=== PATIENT | female | born 2000 | race African-American/Black ===

== ENCOUNTER 2021-01-03 08:00 | Outpatient (CLI) | payer OTHER ==
[2021-01-03 13:21] LABS: BILIRUBIN,URINE NEGATIVE (NEGATIVE); CLARITY,URINE CLOUDY (CLEAR); GLUCOSE, URINE (UA) NEGATIVE (NEGATIVE); KETONES,URINE (UA) NEGATIVE (NEGATIVE); LEUKOCYTE ESTERASE, URINE NEGATIVE (NEGATIVE); NITRITE,URINE NEGATIVE (NEGATIVE); OCCULT BLOOD,URINE NEGATIVE (NEGATIVE); PH,URINE 6.5 PH (5.0-7.5); PROTEIN,URINE NEGATIVE (NEGATIVE); UROBILINOGEN,URINE 0.2 (NORMAL) E.U./dL (NORMAL)
[2021-01-03 13:25] LABS: AMORPHOUS SEDIMENT,UR Marked /LPF; BACTERIA,URINE Few /HPF (None Seen); RBC,URINE None Seen /HPF (0-5); SQUAMOUS EPITHELIAL CELL,UR NONE SEEN (<= Few); WBC,URINE 0-3 /HPF (0-5)
== END 2021-01-03 23:59 | disposition home or self-care (01) ==
LOC: LAB.R 08:00
PROVIDERS: ATTEND Advanced Practice Midwife
DX: Z32.01 Encounter for pregnancy test, result positive (principal)
CPT/HCPCS: 81001; 87086

== ENCOUNTER 2021-01-09 16:11 | Outpatient (CLI) | payer OTHER ==
--- NOTE | 2021-01-09 18:22 | Ultrasound Report ---
PROCEDURE: OB First Trimester w/TV INDICATIONS: POSITIVE TEST OUTSIDE/PRIOR DATING DATA: Last menstrual period (LMP): 11/19/2020. LMP-based estimated date of delivery (NATALEE): 08/26/2021. First dating scan (date and location): 01/09/2021. Estimated date of delivery (NATALEE) from first dating scan: 08/26/2021. TECHNIQUE: Real-time scanning was performed of the fetus and maternal pelvic organs, with image documentation. Endovaginal scanning was also performed to better visualize the fetus and maternal ovaries. COMPARISON: None. FINDINGS: Embryo: Byram-rump length measuring 1.1 cm corresponding to gestational age of 7 weeks 2 days. heart rate 144 BPM. A yolk sac is seen. Lacy appearance within the gestational sac. Small subchorion ic bleed measuring 2.3 x 1.5 cm. Measurement variability in dating: +/- 4 weeks by LMP, +/- 7 days by mean sac diameter (use before 6 weeks gestation if crown-rump length not able to be measured), +/- 5 days by crown-rump length (6-12 weeks gestation). Maternal organs: Ovaries are within normal limits. Right ovary mass or corpus luteum measuring 2.3 x 2.2 x 1.8 cm. Left ovarian anechoic cyst measuring of 4 cm. The cervix is closed. No maternal hydron ephrosis. IMPRESSION: 1. Gutierrez living intrauterine at 7 weeks 2 days based on today's crown-rump length. Feta l heart rate 144 BPM. 2. Septations or debris within the gestational sac. 3. Small perigestational hemorrhage. 4. Right ovarian mass or corpus luteum measuring at 2.3 cm. Recommend short-term interval follow-up ultrasound. Reviewed by: Morteza Tomlinson MD on 01/09/2021 5:21 PM ANYA Approved by: Morteza Tomlinson MD on 01/09/2021 5:21 PM ANYA Station ID: [id number]
== END 2021-01-09 16:12 | disposition home or self-care (01) ==
LOC: DI 16:11
PROVIDERS: ATTEND Advanced Practice Midwife
DX: O34.81 Maternal care for other abnormalities of pelvic organs, first trimester (principal); O20.8 Other hemorrhage in early pregnancy; O99.891 Other specified diseases and conditions complicating pregnancy; N83.8 Other noninflammatory disorders of ovary, fallopian tube and broad ligament; R93.89 Abnormal findings on diagnostic imaging of other specified body structures; Z3A.01 Less than 8 weeks gestation of pregnancy

== ENCOUNTER 2021-01-13 16:50 | Emergency (ER) | payer OTHER ==
[2021-01-13] MEDS ORDERED: PROPARACAINE 0.5% OPHTH DROPS 15 ML EACHEYE STA (18:34)
[2021-01-13] MEDS ORDERED: POLYMYXIN B/TRIMETH OPHTH DROPS RIGHTEYE STA (19:00)
--- NOTE | 2021-01-13 19:03 | ED Physician Documentation ---
PD HPI OPHTHO - Stated complaint Stated Complaint: RT EYE PX/SENSITIVITY - Chief complaint Chief Complaint: Heent - History obtained from History obtained from: Patient - History of Present Illness Timing - onset: How many days ago (1) Timing - duration: Days (1) Timing - details: Gradual onset Pain level max: 3 Pain level now: 2 Location: Right Quality / character: Aching Associated symptoms: Redness, Tearing Contributing factors: Wears contacts - Additional information Additional information: Patient is a 20-year-old female who complains of right eye pain. She does wear contacts and did sleep in them last night. Tonight her eye is red and tearing. Clear drainage. Aching type pain. Worse with light. Nothing makes it better Review of Systems Constitutional: denies: Fever Eyes: denies: Loss of vision Ears: denies: Ear pain Nose: denies: Rhinorrhea / runny nose, Congestion : denies: Now EGA Skin: denies: Rash PD PAST MEDICAL HISTORY - Past Medical History Past Medical History: No - Past Surgical History Past Surgical History: No - Present Medications Home Medications: Ambulatory Orders Medication Instructions Recorded Confirmed Ofloxacin 0.3% Ophth Drops 1 - 2 drops RIGHTEYE Q4H 7 Days #5 01/13/21 [Ocuflox 0.3% Ophth Drops] ml - Allergies Allergies/Adverse Reactions: Allergies Allergy/AdvReac Type Severity Reaction Status Date / Time No Known Drug Allergies Allergy Verified 01/13/21 17:46 - Social History Does the pt smoke?: No Smoking Status: Never smoker Does the pt drink ETOH?: No Does the pt have substance abuse?: No - Immunizations Immunizations are current?: Yes - POLST Patient has POLST: No PD ED PE NORMAL - Vitals Vital signs reviewed: Yes - General General: Alert and oriented X 3, No acute distress - HEENT HEENT: Moist mucous membranes, Other (L eye normal. - R eye conjunctival injection, slight yellow drainage. no fluoroscein uptake. no visible ulceration. ) - Neck Neck: Supple, no meningeal sign - Cardiac Cardiac: RRR - Respiratory Respiratory: No respiratory distress, Clear bilaterally - Derm Derm: Warm and dry - Neuro Neuro: Alert and oriented X 3 - Psych Psych: Normal mood, Normal affect Results - Vitals Vitals: Vital Signs - 24 hr 01/13/21 01/13/21 17:42 19:21 Temperature 36.7 C 37.0 C Heart Rate 71 73 Respiratory 15 20 Rate Blood Pressure 136/64 H 112/74 O2 Saturation 100 97 Oxygen O2 Source Room air PD MEDICAL DECISION MAKING - ED course Complexity details: considered differential, d/w patient ED course: 20-year-old female with right eye conjunctivitis. Does wear contacts and does sleep in her contacts. I do not see a corneal ulcer. We will cover her with Ocuflox. We will have her follow-up with her doctor and ophthalmology for further care. Patient counseled regarding signs and symptoms for which I believe and urgent re-evaluation would be necessary. Patient with good understanding of and agreement to plan and is comfortable going home at this time This document was made in part using voice recognition software. While efforts are made to proofread this document, sound alike and grammatical errors may occur. Departure - Departure Disposition: 01 Home, Self Care Clinical Impression: Conjunctivitis Qualifiers: Conjunctivitis type: acute Acute conjunctivitis type: bacterial Laterality: right Qualified Code(s): H10.31 - Unspecified acute conjunctivitis, right eye Condition: Good Instructions: ED Conjunctivitis Bacterial Follow-Up: your,doctor in 1 week [Other] Jairon Blanco MD [Provider Admit Priv/Credential] - Within 1 week Prescriptions: Ofloxacin 0.3% Ophth Drops [Ocuflox 0.3% Ophth Drops] 1 - 2 drops RIGHTEYE Q4H 7 Days #5 ml Comments: Use the antibiotic drops as prescribed. Follow-up with your doctor for repeat evaluation. Please do not wear your contact lenses until you are fully healed. You should see an contract associate manager as well to ensure there is no further damage. Discharge Date/Time: 01/13/21 19:28
[2021-01-13 19:21] VITALS: BP 112/74
== END 2021-01-13 19:28 | disposition home or self-care (01) ==
LOC: ED 16:50
DX: H10.31 Unspecified acute conjunctivitis, right eye (principal)
CPT/HCPCS: 99282; 99284; A9270; J3490

== ENCOUNTER 2021-01-31 14:57 | Outpatient (CLI) | payer OTHER ==
--- NOTE | 2021-01-31 16:42 | Ultrasound Report ---
PROCEDURE: OB First Trimester INDICATIONS: Supervision of OUTSIDE/PRIOR DATING DATA: Last menstrual period (LMP): 11/19/2020. LMP-based estimated date of delivery (NATALEE): 08/26/2021. First dating scan (date and location): 01/09/2021. Estimated date of delivery (NATALEE) from first dating scan: 08/26/2021. TECHNIQUE: Real-time scanning was performed of the fetus and maternal pelvic organs, with image documentation. COMPARISON: 01/09/2021 FINDINGS: Embryo: Gestational sac in the uterine fundus measures 4.7 cm mean sac diameter, consistent with 10 weeks 2 day gestational age. Previously seen debris in the gestational sac has almost entirely resolv ed. Embryo measuring 3.7 cm crown-rump length, consistent with gestational age of 10 weeks 5 days. Ce rvix is closed measuring 3.5 cm. heart rate 1 60 bpm. Measurement variability in dating: +/- 4 weeks by LMP, +/- 7 days by mean sac diameter (use before 6 weeks gestation if crown-rump length not able to be measured), +/- 5 days by crown-rump length (6-12 weeks gestation). Maternal organs: Unchanged right ovarian mass with mixed echogenicity. This is thought to represent a corpus luteum cyst although a dermoid cannot be strictly excluded. Left ovary is unremarkable. IMPRESSION: Single living intrauterine gestation with average ultrasound age of 10 weeks 5 days. Previously seen debris in the gestational sac has almost entirely resolved. Amniotic bands or hemorrh age within the gestational sac remain the leading differential considerations. Unchanged right ovarian lesion likely a corpus luteum cyst, although dermoid cannot be strictly exclu ded. Reviewed by: Rayshawn Cullen MD on 01/31/2021 4:41 PM PDT Approved by: Rayshawn Cullen MD on 01/31/2021 4:41 PM PDT Station ID: [id number]
== END 2021-01-31 14:58 | disposition home or self-care (01) ==
LOC: DI 14:57
PROVIDERS: ATTEND Advanced Practice Midwife
DX: Z34.91 Encounter for supervision of normal pregnancy, unspecified, first trimester (principal)

== ENCOUNTER 2021-02-04 11:18 | Outpatient (CLI) | payer OTHER ==
[2021-02-04 12:36] LABS: BASOPHILS % (AUTO) 0.5 %; EOSINOPHILS # (AUTO) 0.3 10^3/uL (0.0-0.7); EOSINOPHILS % (AUTO) 4.3 %; HCT - HEMATOCRIT 41.1 % (37.0-47.0); HGB - HEMOGLOBIN 13.5 g/dL (12.0-16.0); LYMPHOCYTES % (AUTO) 27.1 %; MEAN CORPUSCULAR HEMOGLOBIN 27.6 pg (27.0-31.0); MEAN CORPUSCULAR HGB CONC 32.8 g/dL (32.0-36.0); MEAN PLATELET VOLUME 9.1 fL (7.9-10.8); MONOCYTES # (AUTO) 0.5 10^3/uL (0.0-1.0); MONOCYTES % (AUTO) 6.5 %; NEUTROPHILS # (AUTO) 4.5 10^3/uL (1.5-6.6); NEUTROPHILS % (AUTO) 61.5 %; PLT - PLATELET COUNT 276 10^3/uL (130-450); RED BLOOD COUNT 4.89 10^6/uL (4.20-5.40); RED CELL DISTRIBUTION WIDTH 12.7 % (12.0-15.0); WHITE BLOOD COUNT 7.4 x10^3/uL (4.8-10.8)
[2021-02-05 13:16] LABS: HEPATITIS B SURFACE ANTIGEN NON-REACTIVE (NON-REACTIVE); HEPATITIS C ANTIBODY NON-REACTIVE (NON-REACTIVE)
[2021-02-05 16:56] LABS: HIV AG/AB 4TH GEN NON-REACTIVE (NON-REACTIVE)
== END 2021-02-04 11:19 | disposition home or self-care (01) ==
LOC: LAB 11:18
PROVIDERS: ATTEND Advanced Practice Midwife
DX: Z34.90 Encounter for supervision of normal pregnancy, unspecified, unspecified trimester (principal); Z36.0 Encounter for antenatal screening for chromosomal anomalies; Z36.89 Encounter for other specified antenatal screening
CPT/HCPCS: 36415; 80306; 85025; 86592; 86762; 86787; 86803; 86850; 86900; 86901; 87340; 87389; 87491; 87591; 87661

== ENCOUNTER 2021-03-05 10:56 | Outpatient (CLI) | payer OTHER | END 2021-03-05 10:57 | disposition home or self-care (01) | LOC: LAB 10:56 | PROVIDERS: ATTEND Nurse Practitioner Obstetrics & Gynecology | DX: Z36.0 Encounter for antenatal screening for chromosomal anomalies (principal) | CPT/HCPCS: 36415; 81599; 82105 ==

== ENCOUNTER 2021-04-12 15:12 | Outpatient (CLI) | payer OTHER ==
--- NOTE | 2021-04-12 19:57 | Ultrasound Report ---
PROCEDURE: OB Detailed Eval INDICATIONS: SUPERVISION OF OUTSIDE/PRIOR DATING DATA: Last menstrual period (LMP): 11/19/2020. LMP-based estimated date of delivery (NATALEE): 08/26/2021. First dating scan (date and location): 01/09/2021. Estimated date of delivery (NATALEE) from first dating scan: 08/26/2021. The below data below was generated using the ultrasound NATALEE of 08/26/2021 TECHNIQUE: Real-time scanning was performed of the fetus, with image documentation and biometric measurements. Endovaginal scanning: Not performed COMPARISON: OB ultrasound, 01/31/2021. FINDINGS: General: A single living intrauterine gestation is present. Presentation: . Pole Placenta: Placental position is posterior, without previa. Amniotic fluid index: 16.6 cm; largest pocket 4.7 cm. heart rate: 153 beats per minute. Maternal cervical canal: 3.2 cm long and closed; normal length is 2.5 cm or more. biometrics: Biparietal diameter: 4.81 cm = 20 weeks 4 days Head circumference: 17.92 cm = 20 weeks 3 days Abdominal circumference: 15.14 cm = 20 weeks 3 days Femur length: 3.36 cm = 20 weeks 4 days Estimated gestational age from initial scan: 20 weeks 4 days. Composite gestational age from present scan: 20 weeks 3 days Estimated weight and percentile: 353 g; 37.7% Measurement variability in biometric dating: +/- 10 days from 12-20 weeks gestation, +/- 2 weeks from 20-30 weeks gestation, +/- 3 weeks at 30 weeks gestation or later. Anatomic survey: Neuro: Ventricles are normal at less than 10 mm. Cisterna magna is normal at 3-11 mm. Cerebellum i s normal in size and morphology. Nuchal skin fold: Normal at less than 6 mm between 14 and 20 weeks gestational age. Face: Nose and lips, facial profile are normal. Spine: No evidence for spina bifida. Heart: Normal four-chamber heart. Ventricular outflow tracts not well seen. Diaphragm: Diaphragm is intact. Stomach: Left-sided stomach is present. Kidneys: No hydronephrosis. Normal is less than 5 mm in 2nd trimester, less than 7 mm in 3rd trimester. Cord: 3 vessel cord has orthotopic insertion. Bladder: Normal in size. Extremities: All 4 extremities are visualized. Again noted is probably a corpus luteal cyst in the right ovary measuring 1.7 x 1.6 cm. IMPRESSION: 1. A single living intrauterine gestation redemonstrated. 2. The ventricular outflow tracts are suboptimally visualized due to position. Repeat examinati on suggested if clinically indicated. 3. Otherwise normal anatomic survey. 4. Probably corpus luteal cyst in the right ovary. Reviewed by: Lissy Pa MD on 04/12/2021 7:56 PM PDT Approved by: Lissy Pa MD on 04/12/2021 7:56 PM PDT Station ID: [id number]
== END 2021-04-12 15:13 | disposition home or self-care (01) ==
LOC: DI 15:12
PROVIDERS: ATTEND Nurse Practitioner Obstetrics & Gynecology
DX: O99.891 Other specified diseases and conditions complicating pregnancy (principal); R93.89 Abnormal findings on diagnostic imaging of other specified body structures; Z3A.20 20 weeks gestation of pregnancy

== ENCOUNTER 2021-04-25 18:23 | Outpatient (CLI) | payer OTHER ==
--- NOTE | 2021-04-26 10:07 | Ultrasound Report ---
PROCEDURE: OB F/U or Repeat INDICATIONS: SUPERVISION OF OUTSIDE/PRIOR DATING DATA: Last menstrual period (LMP): 11/19/2020. LMP-based estimated date of delivery (NATALEE): 08/26/2021. First dating scan (date and location): 01/09/2021. Estimated date of delivery (NATALEE) from first dating scan: 08/26/2021. The below data below was generated using the ultrasound NATALEE of 08/26/2021 TECHNIQUE: Real-time scanning was performed of the fetus, with image documentation. Endovaginal scanning: Not performed. COMPARISON: OB ultrasound 04/12/2021, 01/31/2021, 01/09/2021 FINDINGS: General: A single living intrauterine gestation is present. Presentation: Breech Placenta: Placental position is posterior, without previa. Amniotic fluid index: 14.2 cm, normal for gestational age. Largest pocket 4.5 cm. heart rate: 140 beats per minute. Maternal cervical canal: Not measured, but appears closed. Other: Left ventricular outflow tract appears normal. Right ventricular outflow tract is suboptimally visualized. Limited evaluation of additional anatomic structures is within normal limits. IMPRESSION: 1. Single live intrauterine . 2. Normal left ventricular outflow tract. 3. Right ventricular outflow tract is not well visualized. Reviewed by: Román Sotomayor MD on 04/26/2021 10:06 AM PDT Approved by: Román Sotomayor MD on 04/26/2021 10:06 AM PDT Station ID: [id number]
== END 2021-04-25 18:24 | disposition home or self-care (01) ==
LOC: DI 18:23
PROVIDERS: ATTEND Nurse Practitioner Obstetrics & Gynecology
DX: Z34.90 Encounter for supervision of normal pregnancy, unspecified, unspecified trimester (principal); Z36.0 Encounter for antenatal screening for chromosomal anomalies

== ENCOUNTER 2021-05-09 15:31 | Outpatient (CLI) | payer OTHER ==
--- NOTE | 2021-05-10 16:37 | Ultrasound Report ---
PROCEDURE: OB F/U or Repeat INDICATIONS: SUPERVISION OF . Previous anatomy scan, and subsequent ventricular outflow tra ct scans demonstrate normal anatomy other than suboptimal visualization of the RVOT. Patient returns for evaluation of the RVOT. OUTSIDE/PRIOR DATING DATA: Last menstrual period (LMP): 11/19/2020. LMP-based estimated date of delivery (NATALEE): 08/26/2021. First dating scan (date and location): 01/09/2021, physician's office. Estimated date of delivery (NATALEE) from first dating scan: 08/26/2021. The below data below was generated using the ultrasound and clinical NATALEE of 10/26/2020 TECHNIQUE: Real-time scanning was performed of the fetus, with image documentation and biometric measurements. Endovaginal scanning: Not required COMPARISON: 04/12/2021, 04/25/2021 FINDINGS: General: A single living intrauterine gestation is present. Presentation: Breech Placenta: Placental position is posterior, without previa. Amniotic fluid index: 14.5 cm, within normal limits for gestational age. heart rate: 164 beats per minute. Maternal cervical canal: 4.9 cm long; normal length is 2.5 cm or more. The RVOT is well visualized, and is normal in appearance. LVOT is also normal in appearance. IMPRESSION: 1. Living second trimester intrauterine . 2. Normal RVOT, completing a normal anatomy study. Reviewed by: Spencer Reyes MD on 05/10/2021 4:35 PM PDT Approved by: Spencer Reyes MD on 05/10/2021 4:35 PM PDT Station ID: [id number]
== END 2021-05-09 15:32 | disposition home or self-care (01) ==
LOC: DI 15:31
PROVIDERS: ATTEND Advanced Practice Midwife
DX: Z34.90 Encounter for supervision of normal pregnancy, unspecified, unspecified trimester (principal)

== ENCOUNTER 2021-05-22 08:42 | Outpatient (CLI) | payer OTHER ==
[2021-05-22 10:08] LABS: HCT - HEMATOCRIT 39.2 % (37.0-47.0); HGB - HEMOGLOBIN 12.6 g/dL (12.0-16.0); MEAN CORPUSCULAR HEMOGLOBIN 27.7 pg (27.0-31.0); MEAN CORPUSCULAR HGB CONC 32.1 g/dL (32.0-36.0); MEAN CORPUSCULAR VOLUME 86.2 fL (81.0-99.0); MEAN PLATELET VOLUME 9.5 fL (7.9-10.8); RED BLOOD COUNT 4.55 10^6/uL (4.20-5.40); RED CELL DISTRIBUTION WIDTH 13.4 % (12.0-15.0); WHITE BLOOD COUNT 7.3 x10^3/uL (4.8-10.8)
== END 2021-05-22 08:43 | disposition home or self-care (01) ==
LOC: LAB 08:42
PROVIDERS: ATTEND Advanced Practice Midwife
DX: Z34.90 Encounter for supervision of normal pregnancy, unspecified, unspecified trimester (principal)
CPT/HCPCS: 36415; 82950; 85027

== ENCOUNTER 2021-05-27 07:34 | Outpatient (CLI) | payer OTHER ==
[2021-05-27 08:12] LABS: GTT GLUCOSE,FASTING 92 mg/dL (70-100)
== END 2021-05-27 07:35 | disposition home or self-care (01) ==
LOC: LAB 07:34
PROVIDERS: ATTEND Nurse Practitioner Obstetrics & Gynecology
DX: O99.810 Abnormal glucose complicating pregnancy (principal)
CPT/HCPCS: 36415; 82951; 82952

== ENCOUNTER 2021-08-01 08:00 | Outpatient (CLI) | payer OTHER | END 2021-08-01 23:59 | disposition home or self-care (01) | LOC: LAB.WC 08:00 | PROVIDERS: ATTEND Obstetrics & Gynecology | DX: Z34.90 Encounter for supervision of normal pregnancy, unspecified, unspecified trimester (principal) | CPT/HCPCS: 87797 ==

== ENCOUNTER 2021-08-02 16:06 | Outpatient (CLI) | payer OTHER ==
[2021-08-02 16:29] LABS: BASOPHILS % (AUTO) 0.3 %; EOSINOPHILS # (AUTO) 0.1 10^3/uL (0.0-0.7); EOSINOPHILS % (AUTO) 0.8 %; HCT - HEMATOCRIT 39.3 % (37.0-47.0); HGB - HEMOGLOBIN 12.7 g/dL (12.0-16.0); LYMPHOCYTES # (AUTO) 1.9 10^3/uL (1.5-3.5); LYMPHOCYTES % (AUTO) 31.9 %; MEAN CORPUSCULAR HEMOGLOBIN 26.8 pg (27.0-31.0); MEAN CORPUSCULAR HGB CONC 32.3 g/dL (32.0-36.0); MEAN CORPUSCULAR VOLUME 83.1 fL (81.0-99.0); MEAN PLATELET VOLUME 9.8 fL (7.9-10.8); MONOCYTES # (AUTO) 0.5 10^3/uL (0.0-1.0); MONOCYTES % (AUTO) 7.7 %; NEUTROPHILS # (AUTO) 3.5 10^3/uL (1.5-6.6); PLT - PLATELET COUNT 267 10^3/uL (130-450); RED BLOOD COUNT 4.73 10^6/uL (4.20-5.40); RED CELL DISTRIBUTION WIDTH 14.2 % (12.0-15.0)
--- NOTE | 2021-08-02 16:40 | PROVIDER PROGRESS NOTE ---
- HPI Chief Complaint: Hypertension/PIH Current : Vital Signs Temperature 99.0 F 08/02/21 16:19 Heart Rate 84 08/02/21 16:19 Respiratory Rate 17 08/02/21 16:19 Blood Pressure 127/84 H 08/02/21 16:19 Temperature 99.0 F 08/02/21 16:21 Heart Rate 84 08/02/21 16:21 Respiratory Rate 17 08/02/21 16:21 Blood Pressure 127/84 H 08/02/21 16:21 O2 Saturation 100 08/02/21 16:21 - Exam 21yo at 36 0/7 weeks presented due to elevated blood pressure at home. Patient had elevated blood pressure in clinic yesterday. Patient reports good movement. Patient denies contractions, SROM or vaginal bleeding. Patient states she has "a little headache", but has not tired Tylenol for it because it "isnt't that bad". O- General: Patient is sitting up on stretcher and in no apparent distress. Chest: Clear to auscultation. Clear breath sounds in all glass. No rales, wheezes, or rhonchi. Heart: RRR without murmur or gallop. Abdomen: Soft, non-tender, Gravid Extremities: No pitting or pretibial edema. Patient wearing open slides. - Procedures OB Procedure Performed: NST Diagnosis/Indication for NST: Gestational Hypertension NST Procedure: 16:20 16:40 NST: Baseline 140 bpm, Accelerations 15X15 2 in 20 minutes. No decelerations. Moderate variability. Category I NST and Reactive. Service Date of procedure: 08/02/21 - Plan Plan: A- IUP 36 5/7, Normal blood pressure at Triage today. Normal Labs today. P- Patient to continue to monitor blood pressure at home. Pre-Eclampsia signs and symptoms reviewed. Patient to call for any questions or concerns. Discussed she may need to start medication if she consistently has Systolic of 140 or greater or Diastolic of 90 or greater. Follow-up in clinic as scheduled. Labor precautions.
[2021-08-02 16:41] LABS: ALBUMIN 3.2 g/dL (3.2-5.5); ALBUMIN/GLOBULIN RATIO 0.9 (1.0-2.2); BILIRUBIN,TOTAL 0.3 mg/dL (0.2-1.0); CALCIUM 9.4 mg/dL (8.5-10.3); CREATININE 0.8 mg/dL (0.4-1.0); POTASSIUM 3.7 mmol/L (3.5-5.0); TOTAL PROTEIN 6.7 g/dL (6.7-8.2)
[2021-08-02 16:52] LABS: CREATININE,URINE 230.5 mg/dL; PROTEIN/CREATININE RATIO,URINE 0.1 (<=0.2)
[2021-08-02 17:28] VITALS: BP 123/80
== END 2021-08-02 17:20 | disposition home or self-care (01) ==
LOC: WFO 16:06 → FBP 16:08 → WFO 17:20
PROVIDERS: ATTEND Obstetrics & Gynecology
DX: O13.3 Gestational [pregnancy-induced] hypertension without significant proteinuria, third trimester (principal); Z3A.36 36 weeks gestation of pregnancy
CPT/HCPCS: 36415; 59025; 80053; 82570; 84156; 84550; 85025

== ENCOUNTER 2021-08-07 11:30 | Outpatient (CLI) | payer OTHER ==
[2021-08-07 11:58] LABS: HCT - HEMATOCRIT 40.3 % (37.0-47.0); HGB - HEMOGLOBIN 13.1 g/dL (12.0-16.0); MEAN CORPUSCULAR HEMOGLOBIN 27.1 pg (27.0-31.0); MEAN CORPUSCULAR HGB CONC 32.5 g/dL (32.0-36.0); MEAN CORPUSCULAR VOLUME 83.3 fL (81.0-99.0); MEAN PLATELET VOLUME 9.7 fL (7.9-10.8); RED BLOOD COUNT 4.84 10^6/uL (4.20-5.40); RED CELL DISTRIBUTION WIDTH 14.5 % (12.0-15.0); WHITE BLOOD COUNT 7.1 x10^3/uL (4.8-10.8)
[2021-08-07 12:05] LABS: PROTEIN/CREATININE RATIO,URINE 0.1 (<=0.2)
[2021-08-07 12:10] LABS: ALBUMIN 3.4 g/dL (3.2-5.5); ALBUMIN/GLOBULIN RATIO 0.9 (1.0-2.2); BILIRUBIN,TOTAL 0.4 mg/dL (0.2-1.0); CALCIUM 9.6 mg/dL (8.5-10.3); CREATININE 0.8 mg/dL (0.4-1.0); POTASSIUM 4.2 mmol/L (3.5-5.0)
== END 2021-08-07 11:31 | disposition home or self-care (01) ==
LOC: LAB 11:30
PROVIDERS: ATTEND Nurse Practitioner Obstetrics & Gynecology
DX: O13.3 Gestational [pregnancy-induced] hypertension without significant proteinuria, third trimester (principal)
CPT/HCPCS: 36415; 80053; 82570; 84156; 85027

== ENCOUNTER 2021-08-12 07:26 | Inpatient (IN) | payer OTHER ==
[2021-08-12] MEDS ORDERED: TRANEXAMIC ACID IN NACL 1,000 MG/100 ML BAG IV PRN (07:51)
[2021-08-12] MEDS ORDERED: SODIUM CHLORIDE FLUSH 0.9% 10 ML SYRINGE IVP PRN (07:51)
[2021-08-12] MEDS ORDERED: OXYTOCIN 10 UNIT/ML VIAL IM PRN (07:51)
[2021-08-12] MEDS ORDERED: miSOPROStoL 200 MCG TABLET BC PRN (07:51)
[2021-08-12] MEDS ORDERED: CARBOPROST TROMETHAMINE 250 MCG/ML AMP IM PRN (07:51)
[2021-08-12] MEDS ORDERED: OXYTOCIN/SODIUM CHLORIDE 500 ML IV PRN (07:51)
[2021-08-12] MEDS ORDERED: LIDOCAINE-MPF 1% 30 ML VIAL ID PRN (07:51)
[2021-08-12] MEDS ORDERED: METHYLERGONOVINE 0.2 MG/ML VIAL IM PRN (07:51)
[2021-08-12] MEDS ORDERED: LACTATED RINGERS 1,000 ML IV SCH (08:00)
[2021-08-12 08:13] LABS: BASOPHILS % (AUTO) 0.4 %; EOSINOPHILS % (AUTO) 0.6 %; HGB - HEMOGLOBIN 12.2 g/dL (12.0-16.0); LYMPHOCYTES % (AUTO) 36.4 %; MEAN CORPUSCULAR HEMOGLOBIN 26.8 pg (27.0-31.0); MEAN CORPUSCULAR HGB CONC 32.1 g/dL (32.0-36.0); MEAN CORPUSCULAR VOLUME 83.5 fL (81.0-99.0); MEAN PLATELET VOLUME 9.6 fL (7.9-10.8); MONOCYTES # (AUTO) 0.3 10^3/uL (0.0-1.0); NEUTROPHILS % (AUTO) 56.4 %; PLT - PLATELET COUNT 227 10^3/uL (130-450); RED BLOOD COUNT 4.55 10^6/uL (4.20-5.40); RED CELL DISTRIBUTION WIDTH 14.6 % (12.0-15.0); WHITE BLOOD COUNT 5.4 x10^3/uL (4.8-10.8)
[2021-08-12] MEDS: miSOPROStoL 100 MCG TABLET BC SCH ×4 (08:41→20:48)
[2021-08-12] MEDS ORDERED: SODIUM CHLORIDE FLUSH 0.9% 10 ML SYRINGE IVP SCH (09:00)
[2021-08-12 09:14] LABS: CREATININE,URINE 201.5 mg/dL; PROTEIN/CREATININE RATIO,URINE 0.1 (<=0.2)
[2021-08-12 09:15] LABS: ALBUMIN 2.9 g/dL (3.2-5.5); ALBUMIN/GLOBULIN RATIO 0.8 (1.0-2.2); BILIRUBIN,TOTAL 0.3 mg/dL (0.2-1.0); CALCIUM 9.1 mg/dL (8.5-10.3); CREATININE 0.9 mg/dL (0.4-1.0); POTASSIUM 3.4 mmol/L (3.5-5.0); TOTAL PROTEIN 6.4 g/dL (6.7-8.2)
[2021-08-12] MEDS ORDERED: ZOLPIDEM 5 MG TABLET PO PRN (15:25)
[2021-08-12] MEDS ORDERED: fentaNYL 100 MCG/2 ML VIAL IVP PRN (23:50)
[2021-08-13] MEDS: miSOPROStoL 100 MCG TABLET BC SCH (01:04)
[2021-08-13] MEDS ORDERED: ROPIVACAINE 0.2% 200 MG/100 ML BAG EP ONE (02:42)
[2021-08-13] MEDS ORDERED: ONDANSETRON 4 MG/2 ML VIAL IVP PRN (03:07)
[2021-08-13] MEDS ORDERED: NALOXONE 0.4 MG/ML VIAL IVP PRN (03:07)
[2021-08-13] MEDS ORDERED: ROPIVACAINE 0.2% 200 MG/100 ML BAG EP PRN (03:07)
[2021-08-13] MEDS ORDERED: ePHEDrine 50 MG/ML VIAL IVP PRN (03:07)
--- NOTE | 2021-08-13 03:07 | ANESTHESIA ---
Pre-Anesthesia VS, & Labs - Diagnosis Active labor - Procedure vaginal delivery Vital Signs: Temp Pulse Resp BP Pulse Ox 37.0 C 88 16 123/87 H 08/12/21 08:56 08/12/21 08:56 08/12/21 08:56 08/12/21 08:56 Height: 5 ft 5 in Weight (kg): 95.708 kg Body Mass Index: 35.1 BMI Classification: Obese - NPO Last Fluid Intake: clear liquids - Is Patient ?: Yes - Lab Results Current Lab Results: Laboratory Tests 08/12/21 09:34: Blood Type A POSITIVE, Antibody Screen NEGATIVE 08/12/21 08:00: Sodium 134 L, Potassium 3.4 L, Chloride 105, Carbon Dioxide 19 L , Anion Gap 10.0, BUN 15, Creatinine 0.9, Estimated GFR (MDRD) 96, Glucose 108 H , Calcium 9.1, Total Bilirubin 0.3, AST 22, ALT 14, Alkaline Phosphatase 110, Total Protein 6.4 L, Albumin 2.9 L, Globulin 3.5, Albumin/Globulin Ratio 0.8 L 08/12/21 08:00: WBC 5.4, RBC 4.55, Hgb 12.2, Hct 38.0, MCV 83.5, MCH 26.8 L, MCHC 32.1, RDW 14.6, Plt Count 227, MPV 9.6, Neut # (Auto) 3.0, Lymph # (Auto) 2.0, [place] # (Auto) 0.3, Eos # (Auto) 0.0, Baso # (Auto) 0.0, Absolute Nucleated RBC 0.00, Nucleated RBC % 0.0 Fish Bones: 08/12/21 08:00 08/12/21 08:00 Home Medications and Allergies Active Medications Carboprost Tromethamine (Carboprost Tromethamine 250 Mcg/Ml Amp) 250 mcg IM Q15M PRN PRN Reason: Step 4: Hemorrhage protocol Stop: 08/17/21 07:54 Fentanyl (Fentanyl 100 Mcg/2 Ml Vial) 50 mcg IVP Q4HR PRN PRN Reason: PAIN Last Admin: 08/13/21 00:09 Dose: 50 mcg Documented by: Lactated Ringer's (Lr) 1,000 mls @ 100 mls/hr IV .Q10H ELENI Oxytocin/Sodium Chloride (Pitocin/Sodium Chloride) 500 mls @ 999 mls/hr IV PRN PRN; Protocol PRN Reason: POST- HEMORR PREVENTION Stop: 08/17/21 07:54 Tranexamic Acid (Tranexamic 1,000 Mg/100ml-Nacl) 1,000 mg in 100 mls @ 600 mls/hr IV .ONCE PRN PRN Reason: EBL >1200mL and within 3hr Stop: 08/17/21 07:54 Lidocaine HCl (Lidocaine-Mpf 1% 30 Ml Vial) 30 ml ID .ONCE PRN PRN Reason: PERINEAL REPAIR Stop: 08/17/21 07:54 Methylergonovine Maleate (Methylergonovine 0.2 Mg/Ml Vial) 0.2 mg IM .ONCE PRN PRN Reason: Step 2: Hemorrhage protocol Stop: 08/17/21 07:54 Misoprostol (Misoprostol 100 Mcg Tablet) 50 mcg BC Q4HR ELENI Last Admin: 08/13/21 01:04 Dose: 50 mcg Documented by: Misoprostol (Misoprostol 200 Mcg Tablet) 800 mcg BC .ONCE PRN PRN Reason: Step 3: Hemorrhage protocol Stop: 08/17/21 07:54 Oxytocin (Oxytocin 10 Unit/Ml Vial) 10 unit IM .ONCE PRN PRN Reason: Step one: If no IV access Stop: 08/17/21 07:54 Sodium Chloride (Sodium Chloride Flush 0.9% 10 Ml Syringe) 10 ml IVP 0100,0900,1700 [facility] Last Admin: 08/12/21 19:15 Dose: 10 ml Documented by: Sodium Chloride (Sodium Chloride Flush 0.9% 10 Ml Syringe) 10 ml IVP PRN PRN PRN Reason: NEEDED PER PROVIDER ORDERS Last Admin: 08/13/21 00:09 Dose: 10 ml Documented by: Allergies/Adverse Reactions: Allergies Allergy/AdvReac Type Severity Reaction Status Date / Time No Known Drug Allergies Allergy Verified 01/13/21 17:46 Anes History & Medical History - Anesthetic History Family history of Anesthesia Complications: Denies Family history of Malignant Hyperthermia: Denies - Medical History Cardiovascular: reports: None Pulmonary: reports: None Gastrointestinal: reports: GERD (during ) Urinary: reports: None Neuro: reports: None Musculoskeletal: reports: None Endocrine/Autoimmune: reports: None Blood Disorders: reports: None Skin: reports: None Smoking Status: Never smoker Psychosocial: reports: No issues indicated History of Cancer?: No - Surgical History General: reports: Other (wisdom teeth) - Obstetrical History : 1 Parity: 0 Events: reports: induced HTN Complications: reports: None Exam General: Alert, Oriented x3, Cooperative, No acute distress Dental: WNL Mouth Openin Fingerbreadth Mallampati classification: II Thyromental Distance: 4-6 cm Mental/Cognitive Status: Alert/Oriented X3, Normal for patient Plan Anesthesia Type: Epidural Consent for Procedure(s) Verified and Reviewed: Yes Code Status: Attempt Resuscitation ASA classification: 2-Mild systemic disease Is this case an emergency?: No
--- NOTE | 2021-08-13 06:51 | DELIVERY NOTE ---
Delivery Note - Labor Labor: positive: Spontaneous - Delivery Method Delivery Method: positive: Spontaneous vaginal delivery - Cervical Ripening Method Cervical Ripening Method: positive: Misoprostil - Presentation Presentation: positive: Vertex, KATHRYN - right occiput anterior - Nuchal Cord Nuchal Cord: positive: None - Amniotic Fluid Description Amniotic Fluid Description: positive: Clear - Episiotomy Type Episiotomy Type: positive: None - Laceration Laceration: positive: 2nd degree, Perineal, Vaginal - Suture Suture Type: positive: Vicryl Suture Size: positive: 2-0, 3-0 - Delivery Outcome Delivery Outcome: positive: Livebirth - Delmar Delmar: positive: Placed in direct skin contact with mother, Stimulated, Warmed, [place]ometown used sex: positive: Female - Cord Cord: positive: 3 vessels - Placenta Placenta: positive: Intact, Spontaneous - Estimated Blood Loss Estimated Blood Loss (in cc): 150 - Post Delivery Events Post Delivery Events: positive: No post delivery events - Delivery Comments (Free Text/Narrative) Delivery Comments (Free Text/Narrative): Labor: This 21yo @ 38.1wks gestation by LMP c/w wk U/S who presented on 08/12/2020 for medical induction of labor secondary to gestational hypertension. SVE was deferred upon arrival secondary to absence of notable contractions. She received 5 total doses of 50mcg BC misoprostol for pre-induction cervical ripening. Epidural placed per maternal request. SROM occurred at 0330 was noted to be a moderate amount of clear fluid. SVE at that time was 2-3/90/-1. FHR pattern demonstrated Category I pattern for most of her labor course with persistent Category II following epidural placement which resulted in hypotension however patient progressed rapidly and was imminent. Pt progressed to c/c/0 at 0511. : Normal of viable female on 08/13/2021 @ 0540. No nuchal cord. The was placed on maternal abdomen, stimulated, dried, and placed skin to skin. 's were 8/9 at 1 and 5 minutes respectively. Pitocin administered via IV for hemostasis. The umbilical cord was allowed to stop pulsating at which time it was doubly clamped by CNM and cut by mother of the patient. 3VC. Cord blood was obtained. Fundal massage and gentle cord traction applied for active management of the third stage. Placenta delivered spontaneously and intact @ 0544. EBL 150mL. Fourth stage: Uterine fundus firm and there is no excessive bleeding. The perineum, vagina, and cervix were inspected and found to have 2nd degree perineal laceration which was repaired using a 2-[address]-1 needle in standard fashion and under sterile conditions. In addition she was noted to have a 1st degree right labial laceration which was repaired using a 3-[address]-1 needle in standard fashion and under sterile conditions. Vaginal examination following repair was completed. Tissues well approximated. initiated. Family bonding well. Both mother and baby were left in stable condition.
--- NOTE | 2021-08-13 07:12 | HISTORY & PHYSICAL EXAMINATION ---
Admit History - Visit Reason Visit Reason: Other - : 1 Parity: 0 Premature: 0 Ectopic: 0 : 0 Care: positive: [facility] Risk/History: positive: None Complications This : positive: induced HTN Smoking Status: Never smoker - Mother's Labs Mother's Blood Type: positive: A Mother's RH: positive: Positive GBS: positive: Group B Step Negative Rubella Status: positive: Immune Meds/Allgy - Home Medications Home Medications: Ambulatory Orders Medication Instructions Recorded Confirmed Ofloxacin 0.3% Ophth Drops 1 - 2 drops RIGHTEYE Q4H 7 Days #5 01/13/21 [Ocuflox 0.3% Ophth Drops] ml - Allergies Allergies/Adverse Reactions: Allergies Allergy/AdvReac Type Severity Reaction Status Date / Time No Known Drug Allergies Allergy Verified 01/13/21 17:46 Review of Systems - Constitutional Constitutional: denies: Fever, Chills, Malaise - Eyes Eyes: denies: Blurred vision, Spots in vision, Dipolpia - Cardiovascular Cariovascular: denies: Irregular heart rate, Palpitations, Chest pain, Edema - Respiratory Respiratory: denies: Cough, Wheezing, SOB at rest - Gastrointestinal Gastrointestinal: denies: Constipation, Diarrhea, Change in bowel habits - Integumentary Integumentary: denies: Rash, Pruritis - Neurological Neurological: denies: Headache, Dizziness Physical - Abdominal Exam Vital Signs: Temp Pulse Resp BP Pulse Ox 36.8 C 76 16 131/91 H 08/13/21 02:46 08/13/21 02:46 08/12/21 08:56 08/13/21 02:46 Contraction Frequency (min/apart): irregular Contraction Intensity: positive: Mild Uterine Resting Tone: positive: Soft - Monitoring Heart Rate Baseline: 140 Strip Review: positive: Category I - Presentation Presentation: positive: Vertex - Vaginal Exam Membranes: positive: Membranes intact - Speculum Exam Speculum Exam Performed: positive: No Plan for Labor - Plan For Labor I expect patient to be DC'd or transferred within 96 hours.: Yes Plan for Labor: Yeimi is a 21yo @ 38.0wks gestation by LMP c/w 7.2wk U/S who presents today for medical induction of labor secondary to gestational hypertension. She denies RONDON, visual disturbances, RUQ or epigastric pain. She denies vaginal bleeding or leakage of fluid. She reports +FM. She states any contractions she has felt over the past several days have been consistent with ingrid manjarrez contractions. She has been a patient of [facility] for the duration of her which has been complicated by her impaired 1 hour GTT with a 3 hour GTT which was WNL. In addition, she was noted to have elevated blood pressure at 36wks gestation and her labs were negative for preeclampsia. She was prescribed a home blood pressure monitor which also noted intermittent elevated blood pressure at home and decision was made to induce at 38wks gestation secondary to diagnosis of gestational hypertension. Her labs have remained WNL. She is supported by her mom today and she denies questions or concerns at this time. She will be admitted for medical induction of labor with pre-induction cervical ripening. Dating Criteria: LMP 11/19/2020 Initial U/S @ 7.2wks c/w LMP dating Serial exams - agree OB Hx: G1: Current Medications: PNV Allergies: NKDA PMHx: no significant Surgical Hx: [place] teeth (2019) Social Hx: Never smoker. No ETOH or IVDA. She is active duty [place]. FOB [place] with minimal involvement. She is supported by her mother who plans to stay with her as long as needed. Family Hx: Hypertension - MGM; Diabetes - uncle; Colon cancer -cousin; arthritis - uncle course: PROBLEMS: Gestational Hypertension-IOL 08/12/2021 @ 38.0wks LMP: 11/19/2020 NATALEE by LMP:08/26/2021 Initial U/S:01/09/2021 @ 7w2d gestation NATALEE by initial us 08/26/2021 FINAL NATALEE: 08/26/2021 A pos/Rubella immune VZV:immune Genetic testing: [place]-Negative; AFP neg FAS: FAS WNL with the exception of suboptimal visualization of ventricular outflow tracts. Posterior placenta. No previa. Size c/w dating (EFW 37.7%). F/u US for cardiac views: left ventrical outflow tract wnl. Right outflow tract not well visualized. Completion FAS WNL Glucola 168; 3HR 92 197, 126, 103 (WNL) Influenza: given 07/23/21 TDAP 05/29 Covid vaccine: #1 08/11; #2 07/03/21 GBS @36.3- Negative HSV: denies self and partner. Breast pump Rx- has MOD: . FOB: Champ. It's a Girl!! [facility] contraception: pap: Physical Exam: Normocephalic, atraumatic Heart RRR w/o M/G/R Lungs CTAB Abdomen gravid, soft, nontender EFW 3100g FHR baseline 140s, moderate variability, + accels, no decels Contractions palpate mild, intermittently with soft resting tone and are not appreciated by pt. SVE deferred. Bilateral LE's trace edema Mood is good. Assessment: 21yo @ 38.0wks gestation by LMP c/w 7.2wk U/S Gestational hypertension GBS negative FHR Category I Plan: Admit for medical induction of labor secondary to gestational hypertension with pre-induction misoprostol. Continuous monitoring. Jacuzzi PRN. Nitrous oxide PRN. Epidural per maternal request. Anticipate . Pt verbalized understanding and agrees to above plan. She denies further questions or concerns at this time.
[2021-08-13] MEDS: HYDROCORTISONE 1% CREAM 28 GM TUBE PR PRN (07:45)
[2021-08-13] MEDS: ACETAMINOPHEN 500 MG TABLET PO SCH ×3 (07:46→23:49)
[2021-08-13] MEDS: WITCH HAZEL/GLYCERIN 1 PAD TOP PRN (07:46)
[2021-08-13] MEDS: IBUPROFEN 800 MG TABLET PO SCH ×3 (07:47→20:03)
[2021-08-13] MEDS: DOCUSATE SODIUM 100 MG CAPSULE PO SCH ×3 (09:44→20:04)
[2021-08-14] MEDS: WITCH HAZEL/GLYCERIN 1 PAD TOP PRN (00:07)
[2021-08-14] MEDS: HYDROCORTISONE 1% CREAM 28 GM TUBE PR PRN (00:07)
[2021-08-14] MEDS: IBUPROFEN 800 MG TABLET PO SCH ×2 (02:07→08:39)
[2021-08-14] MEDS: DOCUSATE SODIUM 100 MG CAPSULE PO SCH (07:21)
[2021-08-14] MEDS: ACETAMINOPHEN 500 MG TABLET PO SCH (07:22)
[2021-08-14 08:07] VITALS: BP 109/66
--- NOTE | 2021-08-14 09:50 | DISCHARGE SUMMARY ---
Discharge Summary Condition at Discharge: Good Discharge Disposition: 01 Home, Self Care - HOSPITAL COURSE Hospital Course: Date of admission: 08/12/2021 Date of discharge: 08/14/2021 Diagnosis on admission: 1. 21yo @ 38.0wks gestation by LMP c/w 7.2wk U/S 2. Gestational hypertension 3. GBS neg 4. FHR Category I Diagnosis on discharge: 1. 21yo PPD#1 s/p TSVD viable female infant 2. 2nd degree perineal laceration -intact 3. 4. Gestational hypertension- normotensive now 5. Normal recovery Brief history: She is a patient of [facility] who presented on 08/12/2021 for medical induction of labor secondary to gestational hypertension. She received 5 doses of 50mcg BC misoprostol for preinduction cervical ripening. SROM occurred at 0330 and was noted to be a moderate amount of clear fluid. Epidural placed per maternal request. Pt progressed to spontaneously deliver a viable female infant on 08/13/2021 @ 0540. Apgars were 8/9 at 1 and 5 minutes respectively. EBL 150mL. 2nd degree perineal laceration with right labial extension was repaired in standard fashion and under sterile conditions. She has been doing well in her course. She is ambulating and tolerating a regular diet. Bonding well with baby. without difficulty. Bleeding is decreased and is light. Pain well controlled with oral medications. She is urinating without difficulty. Did not sleep well last night as baby was rather fussy but she feels she is well supported at home with her mom and feels confident in her ability to feed her baby. Mother is supportive at the bedside. She will be discharged home today on day #1 with instructions to continue taking her vitamin while and to continue taking ibuprofen and tylenol OTC as needed for pain management. She intends to f/u with myself at [facility] in 1 week for routine visit or sooner if needed. She has been given precautions to call if she has any worsening fevers, chills, abdominal pain, increased vaginal bleeding or foul smelling vaginal lochia. She verbalized understanding and agrees to above plan. She denies further questions or concerns at this time. Physical Exam: BP 109/66, RR 20, HR 71, T 37.1 Heart RRR w/o M/G/R, lungs CTAB, abdomen soft and nontender with fundus firm at U, perineum intact, repair without edema, bilateral LE's trace edema, mood is good. - ALLERGIES Allergies/Adverse Reactions: Allergies Allergy/AdvReac Type Severity Reaction Status Date / Time No Known Drug Allergies Allergy Verified 01/13/21 17:46 - MEDICATIONS Home Medications: Ambulatory Orders Medication Instructions Recorded Confirmed Ofloxacin 0.3% Ophth Drops 1 - 2 drops RIGHTEYE Q4H 7 Days #5 01/13/21 [Ocuflox 0.3% Ophth Drops] ml - LABS Result Diagrams: 08/12/21 08:00 08/12/21 08:00
--- NOTE | 2021-08-14 09:50 | Discharge Plan ---
Discharge Plan Problem Reviewed?: Yes Disposition: Home, Self Care Condition: Good Diet: Regular Activity Restrictions: No Restrictions Shower Restrictions: No Driving Restrictions: No Weight Bearing: Full Weight No Smoking: If you smoke, Please STOP! Call for help. Follow-up with: Kira Benitez CNM, ARNP [Provider Admit Priv/Credential] -
== END 2021-08-14 13:30 | disposition home or self-care (01) | DRG 807 ==
LOC: WFO 07:26 → FBP 07:31 → WFO 07:47 → FBP 07:48 → OBSVTOIN 08-13 03:08
PROVIDERS: ADMIT Nurse Practitioner Obstetrics & Gynecology; ATTEND Nurse Practitioner Obstetrics & Gynecology
PROC: 3E0DXGC Introduction of Other Therapeutic Substance into Mouth and Pharynx, External Approach (ICD-10-PCS; principal; 2021-08-12)
PROC: 10E0XZZ Delivery of Products of Conception, External Approach (ICD-10-PCS; 2021-08-13)
PROC: 0KQM0ZZ Repair Perineum Muscle, Open Approach (ICD-10-PCS; 2021-08-13)
DX: O13.4 Gestational [pregnancy-induced] hypertension without significant proteinuria, complicating childbirth (principal); Z37.0 Single live birth; O70.1 Second degree perineal laceration during delivery; Z3A.38 38 weeks gestation of pregnancy; O99.214 Obesity complicating childbirth; O99.810 Abnormal glucose complicating pregnancy
CPT/HCPCS: 36415; 80053; 82570; 84156; 85025; 86850; 86900; 86901; 96374; A9270; G0378; J7120

== ENCOUNTER 2022-07-05 13:24 | Emergency (ER) | payer OTHER ==
[2022-07-05 13:35] VITALS: BP 129/76
--- NOTE | 2022-07-05 14:44 | ED Physician Documentation ---
PD HPI LOWER EXT INJURY - Stated complaint Stated Complaint: R FOOT INJ - Chief complaint Chief Complaint: Trauma Ext - History obtained from History obtained from: Patient - History of Present Illness PD HPI LOW EXT INJURY LOCATION: Right, Foot Type of injury: Twist (while dancing) Timing - onset: Last night Timing - duration: Days (1) Timing - details: Abrupt onset, Still present Worsened by: Moving, Palpating, Other (walking/weight bearing) Associated symptoms: Swelling. No: Weakness, Numbness Similar symptoms before: Has not had sx before Recently seen: Not recently seen Review of Systems Skin: denies: Abrasion (s), Laceration (s) Musculoskeletal: reports: Extremity swelling (mid foot right laterally) Neurologic: denies: Focal weakness, Numbness PD PAST MEDICAL HISTORY - Past Medical History Cardiovascular: None Respiratory: None Neuro: None Endocrine/Autoimmune: None GI: GERD (during ) : None Musculoskeletal: None Derm: None - Past Surgical History Past Surgical History: No General: Other (wisdom teeth) - Present Medications Home Medications: Ambulatory Orders Medication Instructions Recorded Confirmed Ofloxacin 0.3% Ophth Drops 1 - 2 drops RIGHTEYE Q4H 7 Days #5 01/13/21 [Ocuflox 0.3% Ophth Drops] ml - Allergies Allergies/Adverse Reactions: Allergies Allergy/AdvReac Type Severity Reaction Status Date / Time No Known Drug Allergies Allergy Verified 07/05/22 13:35 - Living Situation Living Situation: reports: 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 The malleolar line of the ankle are not tender. Good color and capillary refill in the toes and foot.There is tenderness anterolateral aspect of the proximal foot as well.) - Neuro Neuro: Alert and oriented X 3, No motor deficit, No sensory deficit Results - Vitals Vitals: Vital Signs - 24 hr 07/05/22 07/05/22 13:31 16:29 Temperature 36.6 C 36.6 C Heart Rate 95 95 Respiratory 16 16 Rate Blood Pressure 129/76 129/76 O2 Saturation 98 98 Oxygen O2 Source Room air - Rads (name of study) right foot Radiology: Prelim report reviewed (proximal 5th MT fracture wtihout displacment), See rad report PD MEDICAL DECISION MAKING - ED course Complexity details: reviewed results (proximal 5th mT fracture), considered dif ferential, d/w patient Departure - Departure Disposition: 01 Home, Self Care Clinical Impression: Closed fracture of 5th metacarpal Qualifiers: Encounter type: initial encounter Metacarpal location: base Fracture alignment: nondisplaced Laterality: right Qualified Code(s): S62.346A - Nondisplaced fracture of base of fifth metacarpal bone, right hand, initial encounter for closed fracture Condition: Stable Record reviewed to determine appropriate education?: Yes Instructions: ED Fx Foot Follow-Up: [facility] [Provider Group] Comments: You do have a fracture of the midfoot at the base of the fifth metatarsal as shown in the pictures given to you. This can get treated with a walking cast boot and will need to be supported/splinted for 4 weeks for healing. Crutches initially to take partial weightbearing or nonweightbearing based as ne eded for comfort. It is okay to progress weightbearing as tolerated with the cast boot. Ice elevate and rest your foot often today and tomorrow to reduce swelling. I would suggest some anti-inflammatory such as ibuprofen or naproxen, 2 tablets 3 times daily for the next week. Add Tylenol every 4-6 hours if needed for pain as well. Would be good to follow-up with orthopedics in about 1-1 and half weeks to ensure this is healing well and on track. Call Thursday for an appointment. Discharge Date/Time: 07/05/22 16:05
--- NOTE | 2022-07-05 14:48 | XRAY Report ---
PROCEDURE: Foot 3 View RT INDICATIONS: Trauma TECHNIQUE: 3 views of the foot were acquired. COMPARISON: None FINDINGS: Bones: There is a minimally displaced fracture of the fifth metatarsal base involving the apophysis. No suspicious bony lesions. Soft tissues: No tibiotalar joint effusion. Achilles tendon appears normal. IMPRESSION: Minimally displaced fracture of the proximal fifth metatarsal base. Reviewed by: Román Sotomayor MD on 07/05/2022 1:46 PM ANYA Approved by: Román Sotomayor MD on 07/05/2022 1:46 PM AKISH Station ID: [id number]
[2022-07-05] MEDS: ACETAMINOPHEN 325 MG TABLET PO STA (15:37)
[2022-07-05] MEDS: IBUPROFEN 600 MG TABLET PO STA (15:37)
== END 2022-07-05 16:05 | disposition home or self-care (01) ==
LOC: ED 13:24
DX: S62.346A Nondisplaced fracture of base of fifth metacarpal bone, right hand, initial encounter for closed fracture (principal); X50.1XXA Overexertion from prolonged static or awkward postures, initial encounter; Y93.41 Activity, dancing
CPT/HCPCS: 73630; 99283; A9270

== ENCOUNTER 2022-07-10 17:28 | Outpatient (CLI) | payer OTHER ==
--- NOTE | 2022-07-11 09:32 | XRAY Report ---
PROCEDURE: Foot 3 View RT INDICATIONS: RIGHT FOOT PAIN TECHNIQUE: 3 views of the foot were acquired. COMPARISON: 07/05/2022 FINDINGS: Bones: Again noted is a stable minimally displaced fracture involving the base of the patient's right fifth metatarsal. No other fractures or dislocations are seen. No suspicious bony lesions. Soft tissues: No tibiotalar joint effusion. Achilles tendon appears normal. IMPRESSION: 1. Stable appearance of minimally displaced fracture involving the base of the patient's right fifth metatarsal. 2. No new acute osseous abnormality seen. Reviewed by: Bhupendra Brewster MD on 07/11/2022 9:31 AM PDT Approved by: Bhupendra Brewster MD on 07/11/2022 9:31 AM PDT Station ID: [id number]
== END 2022-07-10 17:29 | disposition home or self-care (01) ==
LOC: DI.N 17:28
PROVIDERS: ATTEND Physician Assistant Surgical
DX: S92.351D Displaced fracture of fifth metatarsal bone, right foot, subsequent encounter for fracture with routine healing (principal)